=== PATIENT | male | born 1945 | race Caucasian/White ===

== ENCOUNTER 2016-10-08 07:43 | Day surgery (SDC) | payer BC ==
[~2016-10-08 07:43] MED LIST: ALEVE220 MG PO; ALTA5 PO; ASAB PO; BUDEPRION XL150 MG PO; BUDEPRION150 MG PO; CALTRAT600 PO; CO Q-10100 MG PO; COREG12 PO; COREG25 PO; ECHINACEA1 PO; EFFEX75 PO; FISH OIL300 MG PO; FISH-EPA1000 MG PO; FLAXSEED OIL1000 MG PO; FLEXI JOIN1 PO; GARLIC PO; LIPITOR40 PO; LUTEIN10 MG PO; MAGOX4 PO; MULTIVIT/MIN PO; NEXIUM20 M1 PO; PREV15 PO; SAW PALMETT2 PO; SPIRO25 PO; SUPER B COMP PO; SUPER B-100 PO; VITAMIN D31000 UNIT PO; VITC500 PO
== END 2016-10-08 23:59 | disposition home or self-care (01) ==
LOC: DMU 07:43
DX: K22.70 Barrett's esophagus without dysplasia (principal); Z53.9 Procedure and treatment not carried out, unspecified reason; G47.33 Obstructive sleep apnea (adult) (pediatric); N40.0 Benign prostatic hyperplasia without lower urinary tract symptoms